=== PATIENT | female | born 1950 | race Caucasian/White ===

== ENCOUNTER 2021-04-09 12:25 | Outpatient (CLI) | payer BC, MEDICARE, SELFPAY ==
--- NOTE | 2021-04-09 12:45 | US_ITS ---
WS: [id number] ULTRASOUND ABDOMEN LIMITED CLINICAL INFORMATION: K80.01 - Calculus of gallbladder with acute cholecystitis... COMPARISON: None. FINDINGS: Liver Size: Normal. Craniocaudal length: 14.7 cm. Echogenicity: Normal. Surface nodularity: None. Mass (size and location): None. Bile ducts Intrahepatic ducts: Normal. Common bile duct diameter: 0.7 cm. Gallbladder Dilated sludge filled gallbladder with mild gallbladder wall thickening. Gallbladder calculus measuri ng 13 mm. Gallbladder distention measures 9.1 cm. Common bile duct measuring 7.7 mm. Pericholecystic fluid: None. Pancreas Normal as visualized. Right kidney: Normal. Hydronephrosis: None. Size: 10.2 cm x 5.1 cm x 5.1 cm. Abdominal aorta and IVC Visualized portions are normal. Ascites: None. US/US gall bladder [id number] IMPRESSION: 1. Diffuse fatty infiltration of the liver. 2. Dilated gallbladder with sludge. 13 mm Calculus near the cystic duct. Mild gallbladder wall thickening measuring 3.6 mm. Dilated common bile duct measurin g 7.7 mm. This can be further evaluated with MRCP. Findings suspicious for chol ecystitis. No pericholecystic fluid. 3. No hydronephrosis in right kidney.
== END 2021-04-09 12:26 | disposition home or self-care (01) ==
LOC: RAD 12:42
PROVIDERS: PCP Nurse Practitioner Family; Visit Provider Surgery
DX: K80.01 Calculus of gallbladder with acute cholecystitis with obstruction (principal); K76.89 Other specified diseases of liver
CPT/HCPCS: 76705

== ENCOUNTER 2022-11-03 11:47 | Outpatient (CLI) | payer OTHER, BC, MEDICARE, SELFPAY ==
--- NOTE | 2022-11-03 12:15 | XR_ITS ---
WS: [id number] Lumbar spine with flexion, extension, and neutral lateral, 11/03/2022 Clinical Data: VERTEBROGENIC LOW BACK PAIN Comparison: Lumbar spine, 06/02/2013. Findings: No compression fractures are seen. There is degenerative disc narrowing at L4-L5. There is minimal an terior subluxation of 0.3 cm at L3-L4 and L4-L5 unchanged. No limitation of motion or change in subluxation is seen. There is minimal calcification in the wall of the abdominal aorta but no aneurysm. There are clips in the upper abdomen from a cholecystectomy. XR/XR lumbar spine f/e only [id number] Impression: 1. Degenerative disc narrowing at L4-L5. 2. Minimal anterior subluxation of 0.3 cm at L3-L4 and L4-L5 which do not [place] e with flexion or extension.
== END 2022-11-03 11:48 | disposition home or self-care (01) ==
PROVIDERS: PCP Nurse Practitioner Family; Visit Provider Anesthesiology Pain Medicine
DX: M47.896 Other spondylosis, lumbar region (principal); M54.51 Vertebrogenic low back pain
CPT/HCPCS: 72120

== ENCOUNTER 2023-12-24 14:32 | Outpatient (CLI) | payer MEDICARE, BC, SELFPAY ==
--- NOTE | 2023-12-24 14:44 | XR_ITS ---
WS: [id number] DEXA (DUAL ENERGY X-RAY ABSORPTIOMETRY) Bone mineral density was performed using a [employer] machine. HISTORY: POST MENOPAUSAL COMPARISON: None available. Lumbar spine BMD (L1-L4): 1.351 g/cm2 T score: 1.4 Z score: 2.0 Total hip BMD: Left: 0.947 g/cm2. T score: -0.5 Z score: 0.3 Right: 0.923 g/cm2. T score: -0.7 Z score: 0.1 10 year probability of a major osteoporotic fracture is 7.9%. IMPRESSION: NORMAL BONE MINERAL DENSITY based upon the WHO classification for females.
== END 2023-12-24 14:33 | disposition home or self-care (01) ==
LOC: RAD 14:33
PROVIDERS: PCP Nurse Practitioner Family; Visit Provider Physical Medicine & Rehabilitation
DX: Z78.0 Asymptomatic menopausal state (principal)
CPT/HCPCS: 77080